=== PATIENT | male | born 1955 | race Caucasian/White ===

== ENCOUNTER 2024-12-05 15:53 | Emergency (ER) | payer MEDICARE, BC, SELFPAY ==
[2024-12-05 15:58] VITALS: BP 170/94; PULSE 89; RESP 16; TEMP 36.6; O2SAT 98
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
[2024-12-05 17:18] VITALS: BP 145/79; PULSE 86; RESP 18; O2SAT 98
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
[2024-12-05] MEDS: Ibuprofen 400 MG TAB PO (18:49)
[2024-12-05 18:59] VITALS: BP 150/77; PULSE 87; O2SAT 97
== END 2024-12-05 18:58 | disposition home or self-care (01) ==
PROVIDERS: Emergency Provider Physician Assistant
DX: S22.31XA Fracture of one rib, right side, initial encounter for closed fracture (principal); R07.89 Other chest pain; M76.892 Other specified enthesopathies of left lower limb, excluding foot; V18.0XXA Pedal cycle driver injured in noncollision transport accident in nontraffic accident, initial encounter
CPT/HCPCS: 99284 ×2; 73552; 71046; 71100; 73110; 73564